=== PATIENT | female | born 1945 | race African-American/Black ===

== ENCOUNTER 2018-02-07 16:32 | Emergency (ER) | payer MEDICARE, OTHER ==
[~2018-02-07] VITALS: Ht 167.6 cm; Wt 81.6 kg
[2018-02-07 16:53] VITALS: BP 100/61
[2018-02-07] MEDS ORDERED: KETOROLAC TROMETH 60MG/2ML VIAL IM ONE (20:00)
== END 2018-02-07 21:32 | disposition home or self-care (01) ==
LOC: ER 16:43
DX: M70.51 Other bursitis of knee, right knee (principal); S13.4XXA Sprain of ligaments of cervical spine, initial encounter; M62.838 Other muscle spasm; V43.52XA Car driver injured in collision with other type car in traffic accident, initial encounter; Y93.89 Activity, other specified; Y92.89 Other specified places as the place of occurrence of the external cause; Y99.8 Other external cause status
CPT/HCPCS: 72170; 73562; 96372; 99284; J1885

== ENCOUNTER 2024-12-28 18:03 | Emergency (ER) | payer BC, OTHER ==
[~2024-12-28] VITALS: Ht 167.6 cm; Wt 65.0 kg
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
--- NOTE | 2024-12-28 19:43 | ECG ---
[facility] Test Date: 2024-12-28 Test Time: 18:14:47 Pat Name: MILE VALVERDE Department: EMS Room: Gender: F Tie Presser: : [id number] Requested By: JONNY SINGH Order Number: [id number] Reading MD: Kostas Armenta Measurements Intervals [place] Rate: 65 P: 0 [place]: 0 QRS: -5 QRSD: 78 T: 81 QT: 418 QTc: 435 Interpretive Statements Normal sinus rhythm LVH with secondary repolarization abnormality Anterior Q waves, possibly due to LVH Electronically Signed On 12-29-2024 8:29:04 PST by Kostas Armenta Please click the below link to view image of tracing.
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
[2024-12-28] MEDS ORDERED: IBUP200C14 PO (22:01)
[2024-12-28] MEDS ORDERED: HYDR-4902 PO (22:01)
[2024-12-28] MEDS: KETOROLAC TROMETH 30 MG/ML 1ML VIAL IV ONE (23:00)
[2024-12-28] MEDS: fentaNYL CITRATE 100 MCG/2 ML VL IV ONE (23:00)
[2024-12-28 23:30] VITALS: BP 135/77; PULSE 53; RESP 16; TEMP 97.4; O2SAT 99
[2024-12-28] MEDS ORDERED: HYDR1TAB97 PO (23:36)
[2024-12-28] MEDS ORDERED: IBUP200T76 PO (23:36)
== END 2024-12-28 23:36 | disposition home or self-care (01) ==
LOC: EDBD 18:03 → ER 18:03
DX: S43.492A Other sprain of left shoulder joint, initial encounter (principal); K80.20 Calculus of gallbladder without cholecystitis without obstruction; K56.609 Unspecified intestinal obstruction, unspecified as to partial versus complete obstruction; K57.30 Diverticulosis of large intestine without perforation or abscess without bleeding; I10 Essential (primary) hypertension; E78.5 Hyperlipidemia, unspecified; Z86.718 Personal history of other venous thrombosis and embolism; Z98.890 Other specified postprocedural states; V43.52XA Car driver injured in collision with other type car in traffic accident, initial encounter; Y93.I9 Activity, other involving external motion; Y92.488 Other paved roadways as the place of occurrence of the external cause; Y99.8 Other external cause status
CPT/HCPCS: 71250; 73030; 74176; 93005